=== PATIENT | male | born 1970 | race Caucasian/White ===

== ENCOUNTER → 2022-02-16 | Outpatient (CLI) | payer BC ==
[~2022-02-16] MED LIST: BUTALB-ACETAMI1 EAC1 PO
[2022-02-16 16:02] LABS: BUN/CREATININE RATIO 13 (0-10)
== END ==
LOC: LAB 13:20
PROVIDERS: Family Medicine
DX: E11.9 Type 2 diabetes mellitus without complications (principal); E78.2 Mixed hyperlipidemia; I50.32 Chronic diastolic (congestive) heart failure
CPT/HCPCS: 36415; 80053; 80061; 82043; 83036